=== PATIENT | male | born 1995 | race Caucasian/White ===

== ENCOUNTER 2018-09-13 19:14 | Emergency (ER) | payer MEDICAID ==
[~2018-09-13] VITALS: Ht 157.5 cm; Wt 66.0 kg
[2018-09-13 19:20] VITALS: Ht 157.5 cm; Wt 66.0 kg
[2018-09-13] MEDS ORDERED: HYDROGEN PEROXIDE 118 ML TOP ONE (20:00)
[2018-09-13] MEDS ORDERED: CARBAMIDE PEROXIDE 6.5% 15ML OTIC RIGHT EAR ONE (20:00)
[2018-09-13] MEDS ORDERED: CIPR7.5D RIGHT EAR (21:02)
[2018-09-13] MEDS ORDERED: OFLO5DRO7 RIGHT EAR (22:00)
[2018-09-13 22:08] VITALS: BP 130/82; PULSE 90; RESP 18
--- NOTE | 2018-09-14 16:45 | ERD ---
ER Documentation Chief Complaint Chief Complaint right earache x 3 days HPI History of Present Illness: 22-year-old male who denies a past medical today due to right ear pain at the present for 3 days. Patient denies ear ringing, vertigo, chills, fever, cold symptoms. Patient denies any other associated symptoms At home pharmacological/nonpharmacological treatment for symptoms: Denies Denies social concerns; Denies recent foreign travel ROS All systems reviewed and are negative except as per history of present illness. Medications Home Meds Active Scripts Ofloxacin Otic (Ofloxacin Otic) 5 Ml Drops, 10 DROP RIGHT EAR DAILY for EAR PAIN /INFECTION for 7 Days, #1 BOTTLE Prov:TOOTIE ANTONIO V SINGLE STROKE PREFORMER 09/13/18 Allergies Allergies: Coded Allergies: No Known Drug Allergies (Verified Allergy, Unknown, 09/13/18) PMhx/Soc Medical and Surgical Hx: pt denies Medical Hx, pt denies Surgical Hx Hx Alcohol Use: Yes Hx Substance Use: No Hx Tobacco Use: No Smoking Status: Never smoker FmHx Family History: No diabetes, No coronary disease Physical Exam Vitals Vital Signs Date Temp Pulse Resp B/P (MAP) Pulse Ox O2 O2 Flow FiO2 Time Delivery Rate 09/13/18 99.3 90 18 130/82 99 Room Air 22:08 (98) 09/13/18 99.3 94 18 136/84 97 19:20 (101) Physical Exam Const: No acute distress, afebrile Head: Atraumatic Eyes: Normal Conjunctiva ENT: Normal External Ears, Nose and Mouth. Cerumen impaction noted to right ear, unable to visualize TM. Left TM without erythema, perforation, bulging. Neck: Full range of motion. No meningismus. Resp: Clear to auscultation bilaterally Cardio: Regular rate and rhythm, no murmurs Abd: Soft, non tender, non distended. No guarding, no masses, no rigidity Skin: No petechiae or rashes Back: No midline or flank tenderness Ext: No cyanosis, or edema Neur: Awake and alert x3, speaking in clear sentences, no focal deficits or facial asymmetry Psych: Normal Mood and Affect Results 24 hrs Current Medications Medications Dose Sig/Osmany Start Time Status Last (Trade) Ordered Route PRN Stop Time Admin Dose Reason Admin Carbamide 2 drop ONCE ONCE 09/13/18 DC 09/13/18 Peroxide RIGHT EAR 20:00 20:05 (Debrox Otic) 09/13/18 20:01 Hydrogen 1 applic ONCE ONCE 09/13/18 DC 09/13/18 Peroxide TOP 20:00 20:05 (Hydrogen 09/13/18 20:01 Peroxide) Procedures/MDM ED COURSE: ED course includes a thorough examination and history. The patient was stable throughout ED course. I kept the patient and/or family informed of laboratory and diagnostic imaging results throughout the ED course. LABS: None MEDICATIONS GIVEN IN ER: Debrox and hydrogen peroxide DIAGNOSTIC IMAGING: None PROCEDURES: Cerumen impaction removal. MEDICAL DECISION MAKING: Low suspicion for life-threatening medical emergency. Low suspicion for HEENT medical emergency requires hospitalization or immediate surgical intervention; low suspicion for tympanic membrane perforation. Cerumen impaction removal successful. Able to visualize tympanic membrane, erythema noted to the canal as well as bubbles behind the TM. Will treat for otitis externa. ED physician consultation: Dr. BYRD to bedside for evaluation. Agrees with plan of care and physical exam. Otherwise healthy patient presenting with constellation of symptoms likely representing cerumen impaction/otitis externa as characterized by history, physical exam findings . Patient reassessment @ 2200: Patient denies pain. Patient hemodynamically stable. No respiratory distress, otherwise relatively well appearing and nontoxic. Disposition given. Patient educated on diagnoses, prescriptions, follow-up care, return precautions. Strict return precautions given for worsening condition; questions answered discharge. Patient verbalizes understanding of discharge instructions. PRESCRIPTIONS FOR HOME: Ofloxacin DISPOSITION: DISCHARGE At this time, patient is stable for discharge and outpatient management. I have instructed the patient to follow-up with his/her primary care physician in 1-2 days. I have discussed with the patient the possibility of needing to see a specialist for further workup and imaging studies if symptoms persist. I have instructed the patient to promptly return to the ER for any new or worsening symptoms including increased pain, fever, nausea, vomiting, weakness or LOC. The patient and/or family expressed understanding of and agreement with this plan. All questions were answered. Home care instructions were provided. DISCLAIMER: Inadvertent spelling and grammatical errors are likely due to EHR/dictation software use and do not reflect on the overall quality of patient care. Also, please note that the electronic time recorded on this note does not necessarily reflect the actual time of the patient encounter. Departure Diagnosis: Primary Impression: Impacted cerumen, right ear Additional Impression: Right ear pain Condition: Stable Patient Instructions: Ear Wax, Treated, Otitis Externa (Child) [facility] Usted se liu hecho un examen mdico de control que le indica que no est en kyleigh condicin que requiera tratamiento urgente en el Departamento de Emergencia. Un estudio ms profundo y el tratamiento de munson condicin pueden esperar sin ningn riesgo hasta que usted sea atendida/o en el consultorio de munson mdico o kyleigh clnica. Es responsabilidad suya arreglar kyleigh jessica para el seguimiento del deborah. MANEJO DE CONDICIONES NO URGENTES EN EL FUTURO 1) Si usted tiene un mdico de atencin primaria: Usted debera llamar a munson mdico de atencin primaria antes de venir al departamento de emergencia. Despus de las horas de consultorio, munson doctor o munson asociado/a est disponible por telfono. El mdico o enfermero de delfin en el servicio telefnico puede asesorarle por checo medio para atender el problema, o deborah contrario se puede programar kyleigh jessica. 2) Si usted no tiene un mdico de atencin primaria: Llame al mdico o clnica de referencia que aparece abajo nichol las horas de consultorio para hacer kyleigh jessica para que le vean. CLINICAS: [facility] [phone] [facility] [phone] [facility] [phone] [address] [place] [phone] [place] [phone] [address] [place] [phone] [facility] () Aaron se liu hecho un examen mdico de control que le indica que no est en kyleigh condicin que requiera tratamiento urgente en el Departamento de Emergencia. Un estudio ms profundo y el tratamiento de munson condicin pueden esperar sin ningn riesgo hasta que ted sea atendida/o en el consultorio de munson mdico o kyleigh clnica. Es responsabilidad suya arreglar kyleigh jessica para el seguimiento del deborah. MANEJO DE CONDICIONES NO URGENTES EN EL FUTURO 1) Si usted tiene un mdico de atencin primaria: Aaron debera llamar a munson mdico de atencin primaria antes de venir al departamento de emergencia. Despus de las horas de consultorio, munson doctor o munson asociado/a est disponible por telfono. El mdico o enfermero de delfin en el servicio telefnico puede asesorarle por checo medio para atender el problema, o deborah contrario se puede programar kyleigh jessica. 2) Si usted no tiene un mdico de atencin primaria: Llame al mdico o condado institucions de referencia que aparece abajo nichol las horas de consultorio para hacer kyleigh jessica para que le vean. SI USTED NO PUEDE PAGAR PARA ALEXYS UN MEDICO puede ir a: [facility] [address] [place] [address] [facility] [address] [place] [address] [facility] [address] [place] [address] [facility] [address] [place] [address] Additional Instructions: Google Translate utilizado para la traduccin de las siguientes lneas, por favor, disculpe los errores. Muchas guera por permitirnos participar en munson cuidado. Munson phil y seguridad es nuestra principal prioridad en [facility]. Es importante leer todas las instrucciones de elisabet y la educacin que se proporcionan en munson paquete de elisabet. Llame a munson mdico de atencin primaria MAANA para kyleigh jessica nichol los prximos 2 a 4 roldan y lleve toda la informacin y los medicamentos recetados. Llene las recetas y siga exactamente las instrucciones de la etiqueta. Si los sntomas empeoran y munson proveedor no est disponible, regrese inmediatamente al Departamento de Emergencias. ----- Google Translate used for translation of following lines, please excuse errors. Thank you very much for allowing us to participate in your care. Your health and safety is our top priority at [facility]. It is important to read all discharge instructions and education provided in your discharge packet. Call your primary care doctor TOMORROW for an appointment during the next 2-4 days and bring all the information and medications prescribed. Have prescriptions filled and follow precisely the directions on the label. If the symptoms get worse and your provider is unavailable, return to the Emergency Department immediately. TOOTIE ANTONIO NP Sep 14, 2018 16:45
== END 2018-09-13 22:10 | disposition home or self-care (01) ==
LOC: FTE 19:14
DX: H61.21 Impacted cerumen, right ear (principal)
CPT/HCPCS: 69209; Z7502; Z7610